=== PATIENT | male | born 1970 | race Caucasian/White ===

== ENCOUNTER 2018-06-26 12:25 | Observation (INO) | payer MEDICARE, MEDICAID ==
[~2018-06-26] VITALS: Ht 175.3 cm; Wt 95.6 kg
[2018-06-26 13:13] LABS: BASOPHILS # (AUTO) 0.04 x10^3/uL (0-0.1); BASOPHILS % (AUTO) 1 % (0-1); EOSINOPHILS # (AUTO) 0.09 x10^3/uL (0-0.4); EOSINOPHILS % (AUTO) 2 % (1-7); LYMPHOCYTES # (AUTO) 0.57 x10^3/uL (1-3.4); LYMPHOCYTES % (AUTO) 14 % (22-44); MD NO; MEAN CORPUSCULAR HEMOGLOBIN 33.5 pg (27.5-34.5); MEAN CORPUSCULAR HGB CONC 34.2 g/dL (33.2-36.2); MEAN PLATELET VOLUME 8.6 fL (7.4-10.4); MONOCYTES # (AUTO) 0.41 x10^3/uL (0.2-0.8); MONOCYTES % (AUTO) 10 % (2-9); NEUTROPHILS # (AUTO) 3.04 x10^3/uL (1.8-6.8); NEUTROPHILS % (AUTO) 73 % (42-75); PLATELET COUNT 134 x10^3/uL (130-400); RED BLOOD COUNT 3.13 x10^6/uL (4.38-5.82); RED CELL DISTRIBUTION WIDTH 14.8 % (9.4-14.8)
[2018-06-26 13:26] LABS: ALBUMIN 3.8 g/dL (3.4-5.0); ANION GAP 18 mmol/L (5-15); CALCIUM 8.5 mg/dL (8.5-10.1); CHLORIDE 96 mmol/L (98-107)
[2018-06-26 13:30] LABS: ALANINE AMINOTRANSFERASE 29 U/L (12-78); ALKALINE PHOSPHATASE 89 U/L (45-117); BILIRUBIN,TOTAL 0.6 mg/dL (0.2-1.0); TOTAL PROTEIN 6.4 g/dL (6.4-8.2)
[2018-06-26] MEDS ORDERED: LABE300T2 PO (14:17)
[2018-06-26] MEDS ORDERED: CALC667C PO (14:17)
[2018-06-26] MEDS ORDERED: FOLI0.8T7 PO (14:17)
[2018-06-26] MEDS ORDERED: SEVE800T8 PO (14:17)
[2018-06-26] MEDS ORDERED: BUME2TAB PO (14:17)
[2018-06-26] MEDS ORDERED: DILT240C61 PO (14:17)
[2018-06-26] MEDS ORDERED: BENA40TA3 PO (14:17)
[2018-06-26] MEDS ORDERED: PANT40TA5 PO (14:17)
[2018-06-26] MEDS ORDERED: METO5TAB5 PO (14:17)
[2018-06-26] MEDS ORDERED: hydrALAzine 20 MG/ML, 1ML IV ONE (14:30)
[2018-06-26] MEDS ORDERED: ENALAPRILAT 1.25 MG/ML, 2ML ONE (14:30)
[2018-06-26] MEDS ORDERED: ENALAPRILAT 1.25 MG/ML, 2ML IV PRN (14:30)
[2018-06-26] MEDS ORDERED: ENALAPRILAT 1.25 MG/ML, 2ML IV ONE (15:00)
[2018-06-26] MEDS ORDERED: TRAZODONE 50MG TABLET PO PRN (15:30)
[2018-06-26] MEDS ORDERED: LABETALOL 5MG/ML, 20ML IVPush PRN (15:30)
[2018-06-26] MEDS ORDERED: DOCUSATE 100 MG CAPSULE PO PRN (15:30)
[2018-06-26] MEDS ORDERED: ACETAMINOPHEN 325 MG TABLET PO PRN (15:30)
[2018-06-26 15:49] LABS: FREE T4 (FREE THYROXINE) 1.05 ng/dL (0.76-1.46); THYROID STIMULATING HORMONE 2.41 mIU/L (0.358-3.740)
[2018-06-26] MEDS ORDERED: SEVELAMER CARBONATE 800MG TAB PO SCH (16:00)
[2018-06-26 16:10] VITALS: BP 192/94
[2018-06-26 17:01] VITALS: BP 190/100
[2018-06-26] MEDS: CALCIUM ACETATE 667 MG CAPSULE PO SCH ×2 (18:28→20:31)
[2018-06-26 20:23] VITALS: BP 182/96
[2018-06-26] MEDS: LABETALOL 300 MG TABLET PO SCH (20:32)
[2018-06-26] MEDS: SEVELAMER CARBONATE 800MG TAB PO SCH (20:32)
[2018-06-26] MEDS: BENAZEPRIL 20 MG TABLET PO SCH (20:32)
[2018-06-26] MEDS: BUMETANIDE 1 MG TABLET PO SCH (20:33)
[2018-06-26] MEDS ORDERED: DILTIAZEM 240 MG CAP.ER.24H PO SCH (21:00)
[2018-06-27 01:23] VITALS: BP 155/85
[2018-06-27 05:36] LABS: BASOPHILS # (AUTO) 0.03 x10^3/uL (0-0.1); BASOPHILS % (AUTO) 1 % (0-1); EOSINOPHILS # (AUTO) 0.13 x10^3/uL (0-0.4); EOSINOPHILS % (AUTO) 3 % (1-7); LYMPHOCYTES # (AUTO) 0.73 x10^3/uL (1-3.4); LYMPHOCYTES % (AUTO) 17 % (22-44); MD NO; MEAN CORPUSCULAR HEMOGLOBIN 34.7 pg (27.5-34.5); MEAN CORPUSCULAR HGB CONC 35.4 g/dL (33.2-36.2); MEAN CORPUSCULAR VOLUME 97.9 fL (81-97); MEAN PLATELET VOLUME 8.6 fL (7.4-10.4); MONOCYTES % (AUTO) 12 % (2-9); NEUTROPHILS # (AUTO) 2.81 x10^3/uL (1.8-6.8); NEUTROPHILS % (AUTO) 67 % (42-75); PLATELET COUNT 136 x10^3/uL (130-400); RED BLOOD COUNT 3.08 x10^6/uL (4.38-5.82); RED CELL DISTRIBUTION WIDTH 14.8 % (9.4-14.8)
[2018-06-27 05:39] LABS: ALBUMIN 3.4 g/dL (3.4-5.0); ANION GAP 13 mmol/L (5-15); CALCIUM 8.7 mg/dL (8.5-10.1); CHLORIDE 96 mmol/L (98-107)
[2018-06-27 06:37] VITALS: BP 154/77
[2018-06-27] MEDS ORDERED: PANTOPROZOLE 40MG TABLET PO SCH (09:00)
[2018-06-27] MEDS ORDERED: MULTIVITS,STRESS FORMULA 1 TABLET PO SCH (09:00)
[2018-06-27] MEDS ORDERED: METOLAZONE 5 MG TABLET PO SCH (09:00)
[2018-06-27] MEDS: BUMETANIDE 1 MG TABLET PO SCH (09:00)
[2018-06-27] MEDS: BENAZEPRIL 20 MG TABLET PO SCH (09:45)
[2018-06-27] MEDS: CALCIUM ACETATE 667 MG CAPSULE PO SCH (09:45)
[2018-06-27] MEDS: LABETALOL 300 MG TABLET PO SCH (09:45)
[2018-06-27] MEDS: SEVELAMER CARBONATE 800MG TAB PO SCH ×2 (09:45→12:34)
[2018-06-27 11:18] VITALS: BP 179/92
[2018-06-27 12:18] VITALS: BP 162/89
[2018-06-27] MEDS ORDERED: AMLO2.5T PO (13:23)
== END 2018-06-27 16:30 | disposition home or self-care (01) ==
LOC: ED 13:18 → EDIP 14:08 → INTOOBSV 14:08 → 4WST 16:01
PROVIDERS: ADMIT Internal Medicine; ATTEND Internal Medicine
DX: I12.0 Hypertensive chronic kidney disease with stage 5 chronic kidney disease or end stage renal disease (principal); N18.6 End stage renal disease; Z99.2 Dependence on renal dialysis; D63.1 Anemia in chronic kidney disease; E87.5 Hyperkalemia; I16.0 Hypertensive urgency; N32.0 Bladder-neck obstruction; S37.30XA Unspecified injury of urethra, initial encounter; X58.XXXA Exposure to other specified factors, initial encounter; Y92.89 Other specified places as the place of occurrence of the external cause; Y93.89 Activity, other specified; Y99.8 Other external cause status
CPT/HCPCS: 36415; 70450; 71045; 80053; 80069; 82140; 83036; 84439; 84443; 85025; 86704; 86706; 87340; 93005; 95819; 96374; 96375; 99285; G0257; G0378; 90935